=== PATIENT | female | born 1965 | race Caucasian/White ===

== ENCOUNTER 2018-08-06 11:48 | Emergency (ER) | payer BC, OTHER ==
--- OUTSIDE RECORDS SUMMARY | 2018-08-06 11:50 | XMS REPORT | Clinical Summary ---
:1965 Author Organization [facility] Address [address] [place] [address] Care Team Providers Name Role Phone Agustin De La O MD Primary Care Provider Allergies Active Allergy Reactions Severity Noted Date Comments Amoxicillin Swelling 05/31/2016 facial Metoclopramide Hcl Other (See Comments) 05/31/2016 HTN severe Bupropion Hcl Other (See Comments) 05/31/2016 Causes seizures Medications Medication Sig Dispensed Refills Start Date End Date Status methadone (DOLOPHINE) Take 10 mg by 0 Active 10 MG tablet mouth 3 (three) times daily. naproxen Take 220 mg by 0 Active (ALEVE,ANAPROX,MIDOL) mouth 2 (two) 220 MG tablet times daily with breakfast and dinner. nortriptyline Take 50 mg by 0 Active (PAMELOR) 25 MG mouth nightly. capsule zonisamide (ZONEGRAN) Take 100 mg by 0 Active 100 MG capsule mouth 2 (two) times daily. pantoprazole Take 1 tablet (40 7 tablet 0 06/04/2016 Active (PROTONIX) 40 MG mg total) by mouth tablet daily. Active Problems Problem Noted Date Brain metastasis 06/01/2016 History of breast cancer 06/01/2016 History of seizure 06/01/2016 Memory difficulties 06/01/2016 Headache 06/01/2016 Social History Tobacco Use Types Packs/Day Years Used Date Current Some Day Smoker 0.25 8 Smokeless Tobacco: Never Used Tobacco Cessation: Ready to Quit: Yes; Counseling Given: Yes Comments: currenly trying to quit Alcohol Use Drinks/Week oz/Week Comments No Sex Assigned at Date Recorded Not on file Job Start Date Occupation Industry Not on file Not on file Not on file Travel History Travel Start Travel End No recent travel history available. Last Filed Vital Signs Not on file Plan of Treatment Not on file Implants Implanted Type Area Ordering Machine Operator Device Shelf Model / Identifier Expiration Serial / Date Lot Matrix Floseal Hemo W/O Ndl 10 [id number] - [id number] Cement/Josh Left: HERRERA: BIOSCI 09/08/2017 [id number] / Implanted: Qty: 1 on 06/01/2016 by Nico De La O MD ler/Adhesi Head / ve [id number] Plt Un3 2h [id number] - [id number] Fracture/F Left: COLLETTE:CRANIOMA 53- [id number] / Implanted: Qty: 1 on 06/01/2016 by Nico De La O MD ixation Head XILLOFACIAL / Cover St[employer]ker Hole Low Prof 14mm [id number] - [id number] Fracture/F Left: COLLETTE: COLLETTE [id number] / Implanted: Qty: 2 on 06/01/2016 by Nico De La O MD ixation Head LEIBINGER / Scr Un3 [place] Self Drl 1.5x4mm [id number] - [id number] Fracture/F Left: COLLETTE :CRANIOMA [id number] / Implanted: Qty: 9 on 06/01/2016 by Nico De La O MD ixation Head XILLOFACIAL / Durepair 1x1 [id number] - [id number] Tissue Left: MEDTRONIC 05/09/2018 [id number] / Implanted: Qty: 1 on 06/01/2016 by Nico De La O MD Graft/Subs Head SURGICAL / titute NAVIGATION [id number] Results Not on fileafter 08/05/2017 Insurance Payer Benefit Plan / Group Subscriber ID Type Phone Address [facility] xxxxxxxxxxxx HMO/POS [phone] Jacque atkins (Home) [address] [place] [address] Advance Directives For more information, please contact:[address] [phone] Code Status Date Activated Date Inactivated Comments Full Code 06/01/2016 11:27 AM 06/04/2016 7:09 PM This code status was determined by: Patient Full Code 06/01/2016 6:50 AM 06/01/2016 11:27 AM This code status was determined by: Patient
--- NOTE | 2018-08-06 12:14 | ER ---
Nurse's Notes [facility] Name: Maria De Jesus Retana Age: 53 yrs Sex: Female : 1965 Arrival Date: 08/06/2018 Time: 11:50 Bed Waiting Private MD: out of town, doctor Diagnosis: Presentation: 08/06 12:10 Presenting complaint: Patient states: bilateral eye redness, was seen by PCP and sent sv home with eye drops and has since had a reaction to the eye drops to the right eye and was told to see an opthmalogist. Transition of care: patient was not received from another setting of care. Onset of symptoms was July 2018. Care prior to arrival: None. 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 She stated she didn't want to sv stay if there was one not manager of production. Vital Signs: 12:12 BP 154 / 109; Pulse 77; Resp 16; Temp 98.7; Pulse Ox 100% ; sv ED Course: 11:50 Patient arrived in ED. mr 11:50 out of town, doctor is Private Physician. mr 12:11 Triage completed. sv 12:12 Arm band placed on. sv Administered Medications: No medications were administered Outcome: 12:13 Patient left the ED. sv Signatures: Tory Dewitt, RN RN lorena Hwang, Tami mr
== END 2018-08-06 12:13 | disposition left against medical advice (07) ==
LOC: ER 11:48
DX: Z53.21 Procedure and treatment not carried out due to patient leaving prior to being seen by health care provider (principal)
CPT/HCPCS: 99281

== ENCOUNTER 2018-09-05 06:07 | Observation (INO) | payer OTHER ==
--- OUTSIDE RECORDS SUMMARY | 2018-09-05 06:09 | XMS REPORT | Clinical Summary ---
:1965 Author Organization [facility] Address [address] [place] [address] Care Team Providers Name Role Phone Agustin [...] Not on file Implants Implanted Type Area Supervisor Intermediates Device Shelf Model / Identifier Expiration Serial / Date Lot Matrix Floseal Hemo W/O Ndl 10 [id number] - [id number] Cement/Josh Left: HERRERA: BIOSCI 09/08/2017 [id number] / Implanted: Qty: 1 on 06/01/2016 by Nico De La O MD ler/Adhesi Head / ve [id number] Plt Un3 2h [id number] - [id number] Fracture/F Left: COLLETTE:CRANIOMA 53- [id number] / Implanted: Qty: 1 on 06/01/2016 by Nico De La O MD ixation Head XILLOFACIAL / Cover Sonali Hole Low Prof 14mm [id number] - [id number] Fracture/F Left: COLLETTE: COLLETTE [id number] / Implanted: Qty: 2 on 06/01/2016 by Nico De La O MD ixation Head LEIBINGER / Scr Un3 [place] Self Drl 1.5x4mm [id number] - [id number] Fracture/F Left: COLLETTE :CRANIOMA [id number] / Implanted: Qty: 9 on 06/01/2016 by Nico De La O MD ixation Head XILLOFACIAL / Durepair 1x1 [id number] - [id number] Tissue Left: MEDTRONIC 05/09/2018 [id number] / Implanted: Qty: 1 on 06/01/2016 by Nico De La O MD Graft/Subs Head SURGICAL / titute NAVIGATION [id number] Results Not on fileafter 09/04/2017 Insurance Payer Benefit Plan / Group Subscriber ID Type Phone Address [facility] xxxxxxxxxxxx HMO/POS [phone] Jacque atkins (Home) [address] [place] [address] Advance Directives For more information, please contact:[address] [phone] Code Status Date Activated Date Inactivated Comments Full Code 06/01/2016 11:27 AM 06/04/2016 7:09 PM This code status was determined by: Patient Full Code 06/01/2016 6:50 AM 06/01/2016 11:27 AM This code status was determined by: Patient
[2018-09-05 06:59] LABS: Urine Blood 2+ (NEG); Urine Glucose TRACE (NEG); Urine Protein NEGATIVE (NEG)
[2018-09-05] MEDS ORDERED: NA CHLORIDE 0.9% 1,000 ML ONE ×2 (07:26→10:04)
[2018-09-05 07:29] LABS: Barbiturates NEGATIVE (NEGATIVE); Benzodiazepines NEGATIVE (NEGATIVE); Cocaine NEGATIVE (NEGATIVE); METHAMPHETAM NEGATIVE (NEGATIVE); Methadone POSITIVE (NEGATIVE); Opiates NEGATIVE (NEGATIVE); Phencyclidine NEGATIVE (NEGATIVE); THC Cannibis NEGATIVE (NEGATIVE)
[2018-09-05 07:48] LABS: Absolute Lymphocytes (CBC) 0.5 K/uL (0.7-4.9); Absolute Neutrophil 14.4 K/uL (1.8-8.0); Basophils % 0.2 % (0-1.3); Eosinophils % 0.1 % (0-4.4); Hematocrit 40.4 % (36.0-45.0); Lymphocytes % 2.9 % (15.3-44.8); MCH 30.6 pg (27.0-35.0); MCV 91.7 fL (80-100); MPV 7.3 fL (7.6-11.3); Monocytes % 6.4 % (3.3-12.3)
[2018-09-05 08:00] LABS: Protime INR 1.12
[2018-09-05] MEDS ORDERED: DEXAMETHASONE 4 MG/ML VIAL ONE (08:05)
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
[2018-09-05 08:22] LABS: Albumin 3.9 g/dL (3.4-5.0); Bilirubin Direct 0.2 mg/dL (0-0.2); Bilirubin Total 0.4 mg/dL (0.2-1.0); Protein, Total 8.1 g/dL (6.4-8.2); Troponin (Emerg Dept Use Only) 0.07 ng/mL (0.0-0.045)
[2018-09-05 08:27] LABS: Potassium 2.9 mmol/L (3.5-5.1)
[2018-09-05 08:40] LABS: Blood Morphology Comment NOT SEEN (NOT SEEN); Platelet Estimate ADEQ; Urine White Blood Cell Casts DIFF
--- NOTE | 2018-09-05 08:56 | RAD REPORT ---
EXAM DESCRIPTION: CT - Chest For Pe Angio - 09/05/2018 8:39 am CLINICAL HISTORY: Chest pain/ hypoxia COMPARISON: None. TECHNIQUE: Dynamically enhanced axial 3 mm thick images of the chest were obtained during administra tion of <100> mL Isovue 370 IV contrast. Coronal and oblique reconstruction images were generated and reviewed. Exam utilizes a protocol for optimal evaluation of pulmonary arterial tree. Maximum intensity projections 3D imaging was utilized All CT scans are performed using dose optimization technique as appropriate and may include automated exposure control or mA/KV adjustment according to patient size. FINDINGS: A pulmonary embolus is not seen. A thoracic aortic aneurysm is not noted. Bovine aorta A pleural effusion is not seen. A pericardial effusion is not seen. A lung consolidation is not present. Mild right lower lobe atelectasis. A subacute comminuted right clavicular fracture. Gallbladder is mildly distended. Right mastectomy IMPRESSION: Negative for a pulmonary embolism.
[2018-09-05] MEDS ORDERED: POTASSIUM CL SA 10 MEQ TAB PO ONE (09:05)
[2018-09-05] MEDS ORDERED: POTASSIUM 25 MEQ EFFERV TAB ONE (09:05)
--- NOTE | 2018-09-05 09:09 | RAD REPORT ---
EXAM DESCRIPTION: [facility] Single View09/05/2018 7:03 am CLINICAL HISTORY: Shortness of breath COMPARISON: 2011 FINDINGS: The lungs appear clear of acute infiltrate. The heart is normal size. Subacute right clav icular fracture
[2018-09-05] MEDS ORDERED: METOPROLOL XL 50 MG TAB PO ONE (10:55)
--- NOTE | 2018-09-05 11:06 | ER ---
Nurse's Notes [facility] Name: Maria De Jesus Retana Age: 53 yrs Sex: Female : 1965 Arrival Date: 09/05/2018 Time: 06:10 Bed 3 Private MD: Diagnosis: Tachycardia, unspecified;Hypokalemia;Altered mental status, unspecified;Elevated troponin Presentation: 09/05 06:27 Presenting complaint: EMS states: Pt took unknown amount of morphine and methadone at tl2 home. found her unresponsive. Pulse was in 40's, BP 60/40. Administered 2 mg of Narcan, HR increased to 150's and BP increased. Pt is now awake, responds to verbal stimuli but is confused. Transition of care: patient was not received from another setting of care. Onset of symptoms was September 05, 2018 at 05:50. Risk Assessment: Do you want to hurt yourself or someone else? Patient reports no desire to harm self or others. Initial Sepsis Screen: Does the patient meet any 2 criteria? No. Patient's initial sepsis screen is negative. Does the patient have a suspected source of infection? No. Patient's initial sepsis screen is negative. Care prior to arrival: Medication(s) given: narcan 2 mg IV IV initiated. 22 GA, in the left hand, Oxygen administered. via a non-rebreather mask. 06:27 Method Of Arrival: EMS: [facility] 2 06:27 Acuity: HÉCTOR 2 tl2 Triage Assessment: 06:30 General: Appears in no apparent distress. uncomfortable, Behavior is cooperative, tl2 anxious, restless. Pain: Complains of pain in arms. Neuro: Oriented to person, time, Speech is normal. Cardiovascular: Denies chest pain, Rhythm is sinus tachycardia. Respiratory: Airway is patent Respiratory effort is even, unlabored, Respiratory pattern is regular, symmetrical. GI: No signs and/or symptoms were reported involving the gastrointestinal system. : No signs and/or symptoms were reported regarding the genitourinary system. Derm: Skin is pale. Historical: - Allergies: 06:30 Amoxicillin; tl2 06:30 PENICILLINS; tl2 06:30 Reglan; tl2 - Home Meds: 06:30 Methadone Oral [Active]; tl2 - PMHx: 06:30 Brain CA; L sided breast cancer (remission); tl2 - Immunization history:: Adult Immunizations up to date. - Social history:: Smoking status: unknown. - Ebola Screening: : No symptoms or risks identified at this time. Screenin:33 Abuse screen: Denies threats or abuse. Nutritional screening: No deficits noted. tl2 Tuberculosis screening: No symptoms or risk factors identified. Fall Risk IV access (20 points). Gait- Impaired (20 pts.). Mental Status- Overestimates/Forgets Limitations (15 pts.). Assessment: 06:30 General: see triage assessment. tl2 06:49 Reassessment: Gave ID to . tl2 07:15 Reassessment: Patient appears in no apparent distress at this time. Patient and/or ph family updated on plan of care and expected duration. Pain level reassessed. Patient is alert, oriented x 3, equal unlabored respirations, skin warm/dry/pink. Hr noted to be elevated at 143 bpm, sinus tach on bedside monitor, Spo2 also noted to be low at 86-89% RA, pt denies palpitations, chest pain, or SOB at this time, ERP notified of vitals and at bedside, pt placed on NC at 2L and head of bed elevated, Spo2 improved to 96%, 1 liter NS bolus administered per ERP order, see MAR. 08:00 Reassessment: Patient appears in no apparent distress at this time. Patient and/or ph family updated on plan of care and expected duration. Pain level reassessed. Pt asleep w/ snoring respirations, awakens easily to verbal stimuli, reports headache, states, " That's what she takes the Methadone for.". 09:29 Reassessment: Patient appears in no apparent distress at this time. No changes from ph previously documented assessment. Patient and/or family updated on plan of care and expected duration. Pain level reassessed. Pt asleep w/ snoring respirations, awakens easily, at bedside, repeat EKG completed. 10:21 Reassessment: Patient appears in no apparent distress at this time. Patient and/or ph family updated on plan of care and expected duration. Pain level reassessed. Patient is alert, oriented x 3, equal unlabored respirations, skin warm/dry/pink. Pt sitting up in bed, eating breakfast, tolerating well, SO at bedside. 12:09 Reassessment: Patient appears in no apparent distress at this time. Patient and/or ph family updated on plan of care and expected duration. Pain level reassessed. Patient is alert, oriented x 3, equal unlabored respirations, skin warm/dry/pink. Dr Cordero at bedside to speak w/ pt. 13:08 Reassessment: Patient appears in no apparent distress at this time. Patient and/or ph family updated on plan of care and expected duration. Pain level reassessed. Patient is alert, oriented x 3, equal unlabored respirations, skin warm/dry/pink. Attempted to call report, receiving nurse unavailable, was told that she will call back. Vital Signs: 06:30 BP 130 / 83; Pulse 146; Resp 23; Temp 98.8(O); Pulse Ox 93% on R/A; Weight 77.11 kg; tl2 Height 5 ft. 5 in. (165.10 cm); Pain 6/10; 07:15 BP 141 / 96; Pulse 143; Resp 22; Pulse Ox 89% on R/A; ph 07:54 BP 120 / 85; Pulse 131; Resp 10; Pulse Ox 93% 2 lpm ; ph 08:15 BP 119 / 83; Pulse 130; Resp 12; Pulse Ox 94% on 2 lpm NC; ph 09:00 BP 133 / 90; Pulse 130; Resp 10; Pulse Ox 92% on 2 lpm NC; ph 10:00 BP 117 / 92; Pulse 130; Resp 14; Pulse Ox 96% on 2 lpm NC; ph 11:28 BP 121 / 89; Pulse 129; Resp 14; Temp 97.8; Pulse Ox 96% on 2 lpm NC; ph 13:06 BP 114 / 88; Pulse 124; Resp 14; Temp 97.8; Pulse Ox 96% on 4 lpm NC; ph 06:30 Body Mass Index 28.29 (77.11 kg, 165.10 cm) tl2 07:15 pt placed on NC at 2L and repositioned in bed, improved to 96% ph 07:54 pt asleep ph Wendy Coma Score: 06:30 Eye Response: spontaneous(4). Verbal Response: confused(4). Motor Response: obeys tl2 commands(6). Total: 14. 07:15 Eye Response: spontaneous(4). Verbal Response: oriented(5). Motor Response: obeys ph commands(6). Total: 15. 09:00 Eye Response: to voice(3). Verbal Response: oriented(5). Motor Response: obeys ph commands(6). Total: 14. ED Course: 06:10 Patient arrived in ED. em1 06:16 Emigdio Leon PA is PHCP. [facility] 06:16 Darryn Ruano MD is Attending Physician. jm 06:29 Triage completed. tl2 06:30 Arm band placed on right wrist. tl2 06:30 Maintain EMS IV. Dressing intact. Good blood return noted. Site clean \\T\\ dry. Gauge \\T\\ tl 2 site: 22 g left hand. 06:33 Patient has correct armband on for positive identification. Bed in low position. Call tl2 light in reach. Side rails up X2. 06:33 correctional counselor/case manager on. Pulse ox on. NIBP on. tl2 06:33 Rhodes cath inserted, using sterile technique, 16 Fr., by ED staff, balloon inflated, to tl2 gravity drainage, urine specimen collected. returned clear yellow urine. Patient tolerated well. 06:53 Radiology exam delayed due to ER staff and Lab are currently working with patient. kw1 07:00 X-ray completed. Portable x-ray completed in exam room. Patient tolerated procedure jb2 well. 07:01 XRAY Chest (1 view) In Process Unspecified. EDMS 07:[address] via stretcher. kw1 07:08 CT Head C Spine In Process Unspecified. EDMS 07:12 CT completed. Patient tolerated procedure well. Patient moved back from CT. kw1 07:30 Initial lab(s) drawn, by ks, sent to lab. Inserted saline lock: 22 gauge in right ph forearm, using aseptic technique. Blood collected. 07:42 Radiology exam delayed due to lab results not completed at this time. (BUN/Creatinine). kw1 07:48 Josy Hartman, RN is Primary Nurse. 08:36 CT completed. Patient tolerated procedure well. Patient moved to CT via stretcher. Patient moved back from CT. 08:39 CT Chest For PE Angio In Process Unspecified. EDMS 11:00 Juliet Cordero MD is Hospitalizing Provider. [facility] 14:00 No provider procedures requiring assistance completed. Patient admitted, IV remains in ph place. Administered Medications: 07:35 Drug: NS 0.9% 1000 ml Route: IV; Rate: 1 bolus; Site: right forearm; ph 10:26 Follow up: Response: No adverse reaction; IV Status: Completed infusion ph 08:51 Not Given (Physician Discretion): Decadron - Dexamethasone 4 mg IVP once ph 09:10 Drug: Potassium Chloride 40 mEq Route: PO; ph 10:26 Follow up: Response: No adverse reaction ph 10:05 Drug: NS 0.9% 1000 ml Route: IV; Rate: 1 bolus; Site: right forearm; ph 11:23 Follow up: Response: No adverse reaction; IV Status: Completed infusion ph 11:23 Drug: Metoprolol 50 mg Route: PO; ph 12:11 Follow up: Response: No adverse reaction; Cardiac rhythm is unchanged ph Point of Care Testing: Blood Glucose: 11:28 Blood Glucose: 121 mg/dL; ph Ranges: Output: 06:53 Urine: 800ml (Rhodes); Total: 800ml. tl2 Outcome: 11:01 Decision to Hospitalize by Provider. perry 14:03 Patient left the ED. samantha 14:03 Admitted to Med/surg accompanied by tech, family with patient, via stretcher, with ph oxygen, with chart. 14:03 Condition: stable 14:03 Instructed on the need for admit. Signatures: Dispatcher [employer] Karin Villalpando, RN RN dm5 Emigdio Leon PA PA jmm Buechter, Jesse jb2 Jones, Susan sj Martinez, Eric em1 Josy Hartman RN RN Hoda Everett RN RN tl2 [place]osua Govea 1 Corrections: (The following items were deleted from the chart) 06:50 06:30 BP 130 / 83; Pulse 146bpm; Resp 23bpm; Pulse Ox 93% RA; 77.11 kg; Height 5 ft. 5 tl2 in.; BMI: 28.2; Pain 6/10; tl2
--- NOTE | 2018-09-05 11:06 | EDPHYS ---
Physician Documentation [facility] Name: Maria De Jesus Retana Age: 53 yrs Sex: Female : 1965 Arrival Date: 09/05/2018 Time: 06:10 Bed 3 Private MD: ED Physician Darryn Ruano HPI: 09/05 07:35 This 53 yrs old Female presents to ER via EMS with complaints of AMS. [facility] 07:36 The patient presents with decreased mental status, decreased responsiveness. Onset: The jmm symptoms/episode began/occurred acutely, this morning. Possible causes: drug use, seizure, the patient has a known seizure history. Associated signs and symptoms: Pertinent positives: confusion. This is a 53 year old female with a history of metastatic breast cancer that presents to the ED with ams. According to paramedics that patient was in respiratory distress with low 02 and was then administered 2 mg of narcan. The patient respiratory status then improved and the patient was then responsive to commands. . Patient states she had no intention to harm herself. . Historical: - Allergies: 06:30 Amoxicillin; tl2 06:30 PENICILLINS; tl2 06:30 Reglan; tl2 - Home Meds: 06:30 Methadone Oral [Active]; tl2 - PMHx: 06:30 Brain CA; L sided breast cancer (remission); tl2 - Immunization history:: Adult Immunizations up to date. - Social history:: Smoking status: unknown. - Ebola Screening: : No symptoms or risks identified at this time. ROS: 07:50 Constitutional: Negative for fever, chills, and weight loss, Eyes: Negative for injury, jmm pain, redness, and discharge, Cardiovascular: Negative for chest pain, palpitations, and edema, Respiratory: Negative for shortness of breath, cough, wheezing, and pleuritic chest pain, Abdomen/GI: Negative for abdominal pain, nausea, vomiting, diarrhea, and constipation, Back: Negative for injury and pain, MS/Extremity: Negative for injury and deformity, Neuro: Negative for headache, weakness, numbness, tingling, and seizure. 07:50 All other systems are negative. Exam: 07:50 Head/Face: atraumatic. jmm 07:50 Constitutional: The patient appears in no acute distress, alert, awake. 07:50 ENT: superficial laceration noted to the tongue. 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 07:50 Cardiovascular: Rate: tachycardic, Rhythm: regular. 07:50 Respiratory: the patient does not display signs of respiratory distress, Respirations: normal, Breath sounds: are clear throughout. 07:50 Abdomen/GI: Inspection: abdomen appears normal. 07:50 Back: ROM is normal. 07:50 Musculoskeletal/extremity: ROM: intact in all extremities. 07:50 Skin: Appearance: Color: normal in color. 07:50 Neuro: Orientation: is normal, Mentation: is normal, Memory: is normal. 07:50 Psych: Behavior/mood is pleasant, cooperative. Vital Signs: 06:30 BP 130 / 83; Pulse 146; Resp 23; Temp 98.8(O); Pulse Ox 93% on R/A; Weight 77.11 kg; tl2 Height 5 ft. 5 in. (165.10 cm); Pain 6/10; 07:15 BP 141 / 96; Pulse 143; Resp 22; Pulse Ox 89% on R/A; ph 07:54 BP 120 / 85; Pulse 131; Resp 10; Pulse Ox 93% 2 lpm ; ph 08:15 BP 119 / 83; Pulse 130; Resp 12; Pulse Ox 94% on 2 lpm NC; ph 09:00 BP 133 / 90; Pulse 130; Resp 10; Pulse Ox 92% on 2 lpm NC; ph 10:00 BP 117 / 92; Pulse 130; Resp 14; Pulse Ox 96% on 2 lpm NC; ph 11:28 BP 121 / 89; Pulse 129; Resp 14; Temp 97.8; Pulse Ox 96% on 2 lpm NC; ph 13:06 BP 114 / 88; Pulse 124; Resp 14; Temp 97.8; Pulse Ox 96% on 4 lpm NC; ph 06:30 Body Mass Index 28.29 (77.11 kg, 165.10 cm) tl2 07:15 pt placed on NC at 2L and repositioned in bed, improved to 96% ph 07:54 pt asleep ph Wendy Coma Score: 06:30 Eye Response: spontaneous(4). Verbal Response: confused(4). Motor Response: obeys tl2 commands(6). Total: 14. 07:15 Eye Response: spontaneous(4). Verbal Response: oriented(5). Motor Response: obeys ph commands(6). Total: 15. 09:00 Eye Response: to voice(3). Verbal Response: oriented(5). Motor Response: obeys ph commands(6). Total: 14. MDM: 06:31 Patient medically screened. [facility] 10:57 Data reviewed: vital signs, nurses notes. Counseling: I had a detailed discussion with [facility] the patient and/or guardian regarding: the historical points, exam findings, and any diagnostic results supporting the discharge/admit diagnosis. ED course: I discussed the patient with Dr. Cordero whom accepted admission. . 11:23 Data reviewed: lab test result(s), EKG, radiologic studies, CT scan. Counseling: I had [facility] a detailed discussion with the patient and/or guardian regarding: lab results, radiology results, the need for further work-up and treatment in the hospital. 11:23 ED course: Patient is currently alert and non toxic in appearance in the ED. Patient perry continues to have persistent tachycardia. CT negative for acute findings. Dr. Wilde has evaluated the patient at bedside. Patient appears to have had a combination of opioid induced respiratory depression along with possible seizure due to sub therapeutic Tegretol levels. . 09/05 06:17 Order name: Basic Metabolic Panel; Complete Time: 08:42 [facility] 09/05 06:17 Order name: CBC with Diff; Complete Time: 08:49 [facility] 09/05 06:17 Order name: LFT's; Complete Time: 08:42 [facility] 09/05 06:17 Order name: Magnesium; Complete Time: 08:42 [facility] 09/05 06:17 Order name: NT PRO-BNP; Complete Time: 08:42 [facility] 09/05 06:17 Order name: PT-INR; Complete Time: 08:11 [facility] 09/05 06:17 Order name: Troponin (emerg Dept Use Only); Complete Time: 08:42 [facility] 09/05 06:17 Order name: XRAY Chest (1 view); Complete Time: 09:14 [facility] 09/05 06:17 Order name: ETOH Level; Complete Time: 08:11 [facility] 09/05 06:17 Order name: UDS; Complete Time: 07:59 [facility] 09/05 06:52 Order name: Urine Dipstick--Ancillary (enter results); Complete Time: 07:02 09/05 07:53 Order name: CBC Smear Scan [facility] 09/05 07:58 Order name: Carbamazepine (tegretol); Complete Time: 08:24 [facility] 09/05 08:42 Order name: Manual Differential; Complete Time: 08:49 [facility] 09/05 06:17 Order name: EKG; Complete Time: 06:18 [facility] 09/05 06:17 Order name: Cardiac monitoring; Complete Time: 06:35 [facility] 09/05 06:17 Order name: EKG - Nurse/Tech; Complete Time: 06:36 [facility] 09/05 06:17 Order name: IV Saline Lock; Complete Time: 06:36 [facility] 09/05 06:17 Order name: Labs collected and sent; Complete Time: 06:36 [facility] 09/05 06:17 Order name: O2 Per Protocol; Complete Time: 06:36 [facility] 09/05 06:17 Order name: O2 Sat Monitoring; Complete Time: 06:36 [facility] 09/05 06:32 Order name: CT Head C Spine; Complete Time: 08:11 [facility] 09/05 06:42 Order name: Rhodes; Complete Time: 06:43 tl2 09/05 07:29 Order name: CT Chest For PE Angio; Complete Time: 09:07 [facility] 09/05 09:22 Order name: Diet Regular; Complete Time: 09:23 ph 09/05 10:38 Order name: Fingerstick Glucose; Complete Time: 11:28 jm Administered Medications: 07:35 Drug: NS 0.9% 1000 ml Route: IV; Rate: 1 bolus; Site: right forearm; ph 10:26 Follow up: Response: No adverse reaction; IV Status: Completed infusion ph 08:51 Not Given (Physician Discretion): Decadron - Dexamethasone 4 mg IVP once ph 09:10 Drug: Potassium Chloride 40 mEq Route: PO; ph 10:26 Follow up: Response: No adverse reaction ph 10:05 Drug: NS 0.9% 1000 ml Route: IV; Rate: 1 bolus; Site: right forearm; ph 11:23 Follow up: Response: No adverse reaction; IV Status: Completed infusion ph 11:23 Drug: Metoprolol 50 mg Route: PO; ph 12:11 Follow up: Response: No adverse reaction; Cardiac rhythm is unchanged ph Point of Care Testing: Blood Glucose: 11:28 Blood Glucose: 121 mg/dL; ph Ranges: Critical Glucose Levels:Adult <50 mg/dl or >400 mg/dl <40 mg/dl or >180 mg/dl Disposition: 09/05/18 11:01 Hospitalization ordered by Juliet Cordero for Inpatient Admission. Preliminary diagnosis are Tachycardia, unspecified, Hypokalemia, Altered mental status, unspecified, Elevated troponin. - Bed requested for Telemetry/MedSurg (Inpatient). - Status is Inpatient Admission. dm5 - Condition is Stable. - Problem is new. - Symptoms have improved. UTI on Admission? No Addendum: 09/08/2018 04:04 Co-signature as Attending Physician, Darryn uRano MD. g s Signatures: Dispatcher [employer] EDMS Barbie Will Deana, RN RN dm5 Emigdio Leon PA PA jmm Hall, Patricia, RN RN Hoda Everett, RN ASHLEY 2 Darryn Ruano MD MD Corrections: (The following items were deleted from the chart) 09/05 11:45 11:01 Hospitalization Ordered by Juliet Cordero MD for Inpatient Admission. Preliminary bd diagnosis is Tachycardia, unspecified; Hypokalemia; Altered mental status, unspecified; Elevated troponin. Bed requested for Telemetry/MedSurg (Inpatient). Status is Inpatient Admission. Condition is Stable. Problem is new. Symptoms have improved. UTI on Admission? No. jmm 14:03 11:45 09/05/2018 11:01 Hospitalization Ordered by Juliet Cordero MD for Inpatient dm5 Admission. Preliminary diagnosis is Tachycardia, unspecified; Hypokalemia; Altered mental status, unspecified; Elevated troponin. Bed requested for Telemetry/MedSurg (Inpatient). Status is Inpatient Admission. Condition is Stable. Problem is new. Symptoms have improved. UTI on Admission? No. bd
[2018-09-05] MEDS ORDERED: NALOXONE 0.4 MG/ML VIAL IV PRN (11:21)
[2018-09-05] MEDS ORDERED: ONDANSETRON 4 MG/2 ML VIAL IV PRN (11:21)
--- NOTE | 2018-09-05 12:10 | EKG ---
Test Date: 2018-09-05 Test Time: 06:20:08 Latex Ribbon Machine Operator: FRANCK MEASUREMENT RESULTS: Intervals: Rate: 150 MS: QRSD: 100 QT: 332 QTc: 524 [place]: P: MS: QRS: 95 T: 4 INTERPRETIVE STATEMENTS: Supraventricular tachycardia Rightward axis Cannot rule out Inferior infarct, age undetermined ST & T wave abnormality, consider anterior ischemia Abnormal ECG No previous ECG available for comparison Electronically Signed On 09-05-18 12:09:05 SUPERVISOR STEEL DIVISION by Erasto Crowe
[2018-09-05 16:18] VITALS: BMI 28.3
[2018-09-05] MEDS: NS KCL 20MEQ 20 MEQ/1,000 ML BAG IV SCH ×2 (16:59→22:00)
[2018-09-05] MEDS ORDERED: ENOXAPARIN 30 MG/0.3 ML SQ SCH (17:00)
[2018-09-05] MEDS: METOPROLOL TAR 25 MG TAB PO SCH (17:00)
[2018-09-05 17:15] LABS: Potassium 4.2 mmol/L (3.5-5.1)
[2018-09-05] MEDS: ACETAMINOPHEN 500 MG TAB PO PRN (19:49)
[2018-09-05] MEDS: CARBAMAZEPINE 200 MG TAB PO SCH (21:03)
[2018-09-06] MEDS: ACETAMINOPHEN 500 MG TAB PO PRN ×3 (00:30→13:29)
[2018-09-06] MEDS: NS KCL 20MEQ 20 MEQ/1,000 ML BAG IV SCH ×4 (00:47→13:28)
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
[2018-09-06 05:00] LABS: Absolute Lymphocytes (CBC) 1.5 K/uL (0.7-4.9); Absolute Monocytes 0.7 K/uL (0.1-1.3); Absolute Neutrophil 7.4 K/uL (1.8-8.0); Basophils % 0.2 % (0-1.3); Eosinophils % 1.2 % (0-4.4); Hematocrit 35.7 % (36.0-45.0); Lymphocytes % 15.2 % (15.3-44.8); MCH 30.8 pg (27.0-35.0); MCV 92.2 fL (80-100); MPV 7.9 fL (7.6-11.3); Monocytes % 7.1 % (3.3-12.3); RBC Red Blood Cell Count 3.87 M/uL (3.86-4.86)
[2018-09-06 05:19] LABS: Albumin 3.4 g/dL (3.4-5.0); Bilirubin Total 0.4 mg/dL (0.2-1.0); Magnesium 2.1 mg/dL (1.8-2.4); Phosphorus 3.4 mg/dL (2.5-4.9); Potassium 4.3 mmol/L (3.5-5.1); Protein, Total 6.8 g/dL (6.4-8.2)
[2018-09-06] MEDS: METOPROLOL TAR 25 MG TAB PO SCH (06:49)
--- NOTE | 2018-09-06 07:12 | EKG ---
Test Date: 2018-09-05 Test Time: 06:34:13 Waste/Materials Exchange Specialist: FRANCK MEASUREMENT RESULTS: Intervals: Rate: 144 IL: QRSD: 100 QT: 360 QTc: 557 [place]: P: IL: QRS: 91 T: 9 INTERPRETIVE STATEMENTS: Supraventricular tachycardia, cannot rule out atrial flutter Rightward axis Cannot rule out Inferior infarct, age undetermined Abnormal ECG Compared to ECG 09/05/2018 06:20:08 ST (T wave) deviation no longer present Possible ischemia no longer present Myocardial infarct finding still present Electronically Signed On 09-06-18 07:12:03 ROLL HANDLER by Chapin Perez
--- NOTE | 2018-09-06 07:14 | EKG ---
Test Date: 2018-09-05 Test Time: 09:25:44 Effervescent Salts Compounder: ROBB MEASUREMENT RESULTS: Intervals: Rate: 130 TX: QRSD: 104 QT: 386 QTc: 568 [place]: P: TX: QRS: 84 T: -22 INTERPRETIVE STATEMENTS: Sinus tachycardia, cannot rule out atrial flutter Cannot rule out Inferior infarct, age undetermined Abnormal ECG Compared to ECG 09/05/2018 06:34:13 Right-axis deviation no longer present Myocardial infarct finding still present Electronically Signed On 09-06-18 07:13:27 ROLL CHANGER by Chapin Perez
[2018-09-06] MEDS: CARBAMAZEPINE 200 MG TAB PO SCH (08:49)
[2018-09-06] MEDS ORDERED: SERTRALINE HCL 100 MG TAB PO SCH (09:00)
--- NOTE | 2018-09-06 11:45 | EKG ---
Test Date: 2018-09-06 Test Time: 10:13:55 Clay Shop Supervisor: ROBB MEASUREMENT RESULTS: Intervals: Rate: 65 MO: 168 QRSD: 96 QT: 418 QTc: 434 [place]: P: 18 MO: 168 QRS: 88 T: 38 INTERPRETIVE STATEMENTS: Sinus rhythm with premature atrial complexes Otherwise normal ECG Compared to ECG 09/05/2018 09:25:44 Atrial premature complex(es) now present Sinus tachycardia no longer present Atrial flutter no longer present Myocardial infarct finding no longer present Electronically Signed On 09-06-18 11:44:11 INPATIENT NURSING AIDE by Chapin Perez
--- NOTE | 2018-09-06 11:46 | ECHO ---
HEIGHT: 5 ft 5 in WEIGHT: 170 lb 0 oz DATE OF STUDY: 09/06/[address]: Chapin Perez MD 2-DIMENSIONAL: YES M.MODE: YES DOPPLER: YES COLOR FLOW: YES TDS: APICALS PORTABLE: DEFINITY: BUBBLE STUDY: DIAGNOSIS: TACHYCARDIA CARDIAC HISTORY: CATHERIZATION: NO SURGERY: NO PROSTHETIC VALVE: NO PACEMAKER: NO MEASUREMENTS (cm) DIASTOLIC (NORMALS) SYSTOLIC (NORMALS) IVSd 1.1 (0.6-1.2) LA Diam 3.4 (1.9-4.0) LVEF 67% LVIDd 3.5 (3.5-5.7) LVIDs 2.2 (2.0-3.5) %FS 36% LVPWd 1.2 (0.6-1.2) Ao Diam 2.8 (2.0-3.7) 2 DIMENSIONAL ASSESSMENT: RIGHT ATRIUM: NORMAL LEFT ATRIUM: NORMAL RIGHT VENTRICLE: NORMAL LEFT VENTRICLE: NORMAL TRICUSPID VALVE: NORMAL MITRAL VALVE: NORMAL PULMONIC VALVE: NORMAL AORTIC VALVE: NORMAL PERICARDIAL EFFUSION: NONE AORTIC ROOT: NORMAL LEFT VENTRICULAR WALL MOTION: NORMAL DOPPLER/COLOR FLOW: MILD TRICUSPID REGURGITATION. MILD PULMONARY HYPERTENSION. ESTIMATED RIGHT VENTRICULAR SYSTOLIC PRESSURE 40 mmHg. COMMENTS: NORMAL 2-DIMENSIONAL ECHOCARDIOGRAM. MILD TRICUSPID REGURGITATION. MILD PULMONARY HYPERTENSION. TECHNOLOGIST: SEBASTIEN MACIAS
[2018-09-06 13:07] VITALS: O2SAT 94
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
[2018-09-06 16:59] VITALS: BP 92/63; TEMP 97.9
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
== END 2018-09-06 16:29 | disposition home or self-care (01) ==
LOC: ER 06:07 → INTOOBSV 11:07 → ERHOLD 11:07 → 4TH 13:42
PROVIDERS: ADMIT Family Medicine; ATTEND Family Medicine
DX: G93.41 Metabolic encephalopathy (principal); G40.909 Epilepsy, unspecified, not intractable, without status epilepticus; E87.6 Hypokalemia; N17.9 Acute kidney failure, unspecified; S42.001A Fracture of unspecified part of right clavicle, initial encounter for closed fracture; S12.000A Unspecified displaced fracture of first cervical vertebra, initial encounter for closed fracture; Z85.3 Personal history of malignant neoplasm of breast; Z85.841 Personal history of malignant neoplasm of brain; G89.4 Chronic pain syndrome; I47.1 Supraventricular tachycardia; R65.10 Systemic inflammatory response syndrome (SIRS) of non-infectious origin without acute organ dysfunction; Z88.0 Allergy status to penicillin; F10.129 Alcohol abuse with intoxication, unspecified; R00.0 Tachycardia, unspecified
CPT/HCPCS: 36415 ×2; 51702; 70450; 71045 ×2; 71275; 72125; 80048 ×2; 80053; 80076; 80156; 80307 ×8; 80320; 81003; 82962; 83605; 83735 ×2; 83880; 84100; 84145; 84484; 85025 ×2; 85610; 93005 ×4; 93306; 94760 ×4; 96360; 96361; 99285; G0378 ×2; J1650; J7030 ×2; Q9967

== ENCOUNTER 2020-02-22 19:06 | Emergency (ER) | payer SELFPAY ==
--- OUTSIDE RECORDS SUMMARY | 2020-02-22 19:09 | XMS REPORT ---
:1965 Author Organization [facility] t Address [address] [place] [address] Dr. Nassar [address] [place] [id number] Care Team Providers Name Role Phone Unavailable Unavailable Unavailable Problems This patient has no known problems. Allergies, Adverse Reactions, Alerts This patient has no known allergies or adverse reactions. Medications This patient has no known medications. Procedures This patient has no known procedures. Results This patient has no known results.
--- OUTSIDE RECORDS SUMMARY | 2020-02-22 19:09 | XMS REPORT | Clinical Summary ---
:1965 Author Organization [facility] Address [address] [place] [id number] Care Team Providers Name Role Phone Cory De La O MD Primary Care Provider Unavailable Allergies Active Allergy Reactions Severity Noted Date Comments Amoxicillin Swelling 05/31/2016 facial Metoclopramide Hcl Other (See Comments) 05/31/2016 H TN severe Bupropion Hcl Other (See Comments) 05/31/2016 Causes seizures Medications Medication Sig Dispensed Refills Start Date End Date Status methadone (DOLOPHINE) Take 10 mg by 0 Active 10 MG tablet mouth 3 (three) times daily. naproxen Take 220 mg by 0 Activ e (ALEVE,ANAPROX,MIDOL) mouth 2 (two) 220 MG tablet times daily with breakfast and dinner. nortriptyline Take 50 mg by 0 Ac tive (PAMELOR) 25 MG mouth nightly. capsule zonisamide [...] Used Tobacco Cessation: Ready to Quit: Yes; C ounseling Given: Yes Comments: currenly trying to quit Alcohol Use Drinks/Week oz/Week Comments No Sex Assigned at Date Recorded Not on file Job Start Date Occupation Industry Not on file Not on file Not on file Travel History Travel Start Travel End No recent travel history available. Last Filed Vital Signs Not on file Plan of Treatment Not on file Implants Implanted Type Area Maintenance Worker Municipal Device Shelf Model / Identifier Expiration Serial / Date Lot Matrix Floseal Hemo W/O Ndl 10 [id number] - [id number] Cement/Josh Left: HERRERA:BIOSCI 09/08/2017 [id number] / Implanted: Qty: 1 on 06/01/2016 by Nico De La O MD ler/Adhesi Head / ve [id number] Plt Un3 2h [id number] - [id number] Fracture/F Left: COLLETTE:CRANIOMA [id number] / Implanted: Qty: 1 on 06/01/2016 by Nico De La O MD ixation Head XILLOFACIAL / Cover Felch Hole Low Prof 14mm [id number] - [id number] Fracture/F Left: COLLETTE:COLLETTE [id number] / Implanted: Qty: 2 on 06/01/2016 by Nico De La O MD ixation Head LEIBINGER / Scr Un3 [place] Self Drl 1.5x4mm [id number] - [id number] Fracture/F Left: COLLETTE:CRANIOMA [id number] / Implanted: Qty: 9 on 06/01/2016 by Nico De La O MD ixation Head XILLOFACIAL / Durepair 1x1 [id number] - [id number] Tissue Left: MEDTRONIC 05/09/2018 [id number] / Implanted: Qty: 1 on 06/01/2016 by Nico De La O MD Graft/Subs Head SURGICAL / titute NAVIGATION [id number] Results Not on fileafter 02/21/2019 Insurance Payer Benefit Plan / Group Subscriber ID Type Phone [facility]/POS [phone] CHOICE EXCHANGE Advance Directives For more information, please contact:[address] [phone] Code Status Date Activated Date Inactivated Comments Full Code 06/01/2016 11:27 AM 06/04/2016 7:09 PM This code status was determined by: Patient Full Code 06/01/2016 6:50 AM 06/01/2016 11:27 AM This code status was determined by: Patient
--- NOTE | 2020-02-22 20:33 | ER ---
Nurse's Notes [facility] Name: Maria De Jesus Retana Age: 54 yrs Sex: Female : 1965 Arrival Date: 02/22/2020 Time: 19:09 Bed 7 Private MD: Diagnosis: Nondisplaced fracture of fifth metatarsal bone, left foot;Displaced avulsion fracture (chip fracture) of left talus Presentation: 02/21 19:19 Chief complaint: Patient states: Was walking and twisted L foot 2 days ago. Now, it's ca1 hurting and swollen. Coronavirus screen: Proceed with normal triage. Patient denies a cough. Patient denies shortness of breath or difficulty breathing. Patient denies measured and/or subjective temperature greater than 100.4F prior to today's visit. Patient denies travel on a cruise ship or to a country the [facility] currently lists as an affected area. Patient denies contact with known and/or suspected case of COVID-19. Ebola Screen: Patient negative for fever greater than or equal to 101.5 degrees Fahrenheit, and additional compatible Ebola Virus Disease symptoms Patient denies exposure to infectious person. Patient denies travel to an Ebola-affected area in the 21 days before illness onset. No symptoms or risks identified at this time. Initial Sepsis Screen: Does the patient meet any 2 criteria? No. Patient's initial sepsis screen is negative. Does the patient have a suspected source of infection? No. Patient's initial sepsis screen is negative. Risk Assessment: Do you want to hurt yourself or someone else? Patient reports no desire to harm self or others. Onset of symptoms was February 22, 2020. 19:19 Method Of Arrival: Wheelchair ca1 19:19 Acuity: HÉCTOR 4 ca1 OPTICAL EFFECTS LINE UP PERSON: 19:22 LMP N/A - Post-menopause ca1 Historical: - Allergies: 19:22 Amoxicillin; ca1 19:22 PENICILLINS; ca1 19:22 Reglan; ca1 - PMHx: 19:22 Brain CA; L sided breast cancer (remission); ca1 - PSHx: 19:22 None; ca1 - Immunization history:: Adult Immunizations up to date. - Social history:: Smoking status: Patient denies any tobacco usage or history of. - Family history:: not pertinent. Screenin:47 Abuse screen: Denies threats or abuse. Denies injuries from another. Nutritional rr5 screening: No deficits noted. Tuberculosis screening: No symptoms or risk factors identified. Fall Risk None identified. Total Abraham Fall Scale indicates No Risk (0-24 pts). Assessment: 19:30 General: Appears in no apparent distress. uncomfortable, Behavior is calm, cooperative, rr5 appropriate for age. 19:30 Pain: Complains of pain in left foot Pain does not radiate. Pain currently is 6 out of rr5 10 on a pain scale. Quality of pain is described as aching, Pain began 2-3 days ago. Is intermittent. Neuro: Level of Consciousness is awake, alert, obeys commands, Oriented to person, place, time, situation, Appropriate for age. Cardiovascular: Capillary refill < 3 seconds Patient's skin is warm and dry. Respiratory: Airway is patent Respiratory effort is even, unlabored, Respiratory pattern is regular, symmetrical. GI: No signs and/or symptoms were reported involving the gastrointestinal system. : No signs and/or symptoms were reported regarding the genitourinary system. EENT: No signs and/or symptoms were reported regarding the EENT system. Derm: Skin is intact, is healthy with good turgor, Skin temperature is warm. Musculoskeletal: Capillary refill < 3 seconds, Reports pain in left foot. 20:20 Reassessment: Patient appears in no apparent distress at this time. No changes from rr5 previously documented assessment. Patient and/or family updated on plan of care and expected duration. Pain level reassessed. Patient is alert, oriented x 3, equal unlabored respirations, skin warm/dry/pink. 21:00 Reassessment: Patient appears in no apparent distress at this time. Patient is alert, rr5 oriented x 3, equal unlabored respirations, skin warm/dry/pink. ED provider explained the findings together with patients powersaw supervisor, discharge instruction given and explained without complaints made. Vital Signs: 19:19 BP 133 / 98; Pulse 112; Resp 16 S; Temp 97.7(TE); Pulse Ox 98% on R/A; Weight 77.11 kg ca1 (R); Height 5 ft. 10 in. (177.80 cm) (R); Pain 6/10; 21:00 BP 125 / 70; Pulse 99; Resp 16; Pulse Ox 99% on R/A; rr5 19:19 Body Mass Index 24.39 (77.11 kg, 177.80 cm) ca1 ED Course: 19:09 Patient arrived in ED. ds1 19:21 Triage completed. ca1 19:22 Arm band placed on right wrist. [facility] 19:26 Edmar Reyes MD is Attending Physician. [facility] 19:27 Tucker Lam, RN is Primary Nurse. rr5 19:48 Patient has correct armband on for positive identification. Bed in low position. Call rr5 light in reach. Pulse ox on. NIBP on. Ice pack to injury. 20:06 Foot Left 3 View XRAY In Process Unspecified. EDMS 20:06 Ankle Left 3 View XRAY In Process Unspecified. EDMS 20:30 Joens Iniguez MD is Referral Physician. [facility] 20:50 3D boot applied to left foot. rr5 21:00 No provider procedures requiring assistance completed. Patient did not have IV access rr5 during this emergency room visit. Administered Medications: 20:30 Drug: [place] 10 mg-325 mg 1 tabs {Note: rass 0.} Route: PO; rr5 21:00 Follow up: Response: No adverse reaction; RASS: Alert and Calm (0) rr5 Outcome: 20:32 Discharge ordered by . [facility] 21:00 Discharged to home via wheelchair, with family. rr5 21:00 Condition: stable 21:00 Discharge instructions given to patient, family, Instructed on discharge instructions, follow up and referral plans. medication usage, Demonstrated understanding of instructions, follow-up care, medications, Prescriptions given X 2. 21:01 Patient left the ED. rr5 Signatures: Dispatcher [employer] EDTN Edmar Reyes MD MD cha Sanford, Demi ds1 Tucker Lam, RN RN rr5 Jacquelin Cerna RN RN ca1
--- NOTE | 2020-02-22 20:33 | EDPHYS ---
Physician Documentation [facility] Name: Maria De Jesus Retana Age: 54 yrs Sex: Female : 1965 Arrival Date: 02/22/2020 Time: 19:09 Bed 7 Private MD: Edmar Foreman HPI: 02/21 19:41 This 54 yrs old Female presents to ER via Wheelchair with complaints of L carito Foot Pain. 19:41 The patient presents with decreased range of motion, pain, swelling, tenderness. The carito complaints affect the left ankle, left lateral ankle and anterior aspect of left ankle. Onset: The symptoms/episode began/occurred 2 day(s) ago. Context: The mechanism of injury involved inversion of the affected ankle. The patient can partially bear weight on the affected extremity. Associated signs and symptoms: The patient has no apparent associated signs or symptoms. The patient presents with decreased range of motion, pain, swelling, tenderness. The complaints affect the left foot, lateral side of left foot and dorsum of left foot. Context: resulted from a mis-step by the patient, the patient tripping, Mechanism of Injury: Inversion. Modifying factors: The symptoms are alleviated by elevation of extremity, ice packs, the symptoms are aggravated by weight bearing, movement, wearing shoes. Associated signs and symptoms: The patient has no apparent associated signs or symptoms. Severity of symptoms: At their worst the symptoms were moderate, in the emergency department the symptoms are unchanged, despite home interventions. The patient has not experienced similar symptoms in the past. DRIVE THRU ORDER TAKER: 19:22 LMP N/A - Post-menopause ca1 Historical: - Allergies: 19:22 Amoxicillin; ca1 19:22 PENICILLINS; ca1 19:22 Reglan; ca1 - PMHx: 19:22 Brain CA; L sided breast cancer (remission); ca1 - PSHx: 19:22 None; ca1 - Immunization history:: Adult Immunizations up to date. - Social history:: Smoking status: Patient denies any tobacco usage or history of. - Family history:: not pertinent. ROS: 19:41 Constitutional: Negative for fever, chills, and weight loss, Eyes: Negative for injury, carito pain, redness, and discharge, ENT: Negative for injury, pain, and discharge, Neck: Negative for injury, pain, and swelling, Cardiovascular: Negative for chest pain, palpitations, and edema, Respiratory: Negative for shortness of breath, cough, wheezing, and pleuritic chest pain, Abdomen/GI: Negative for abdominal pain, nausea, vomiting, diarrhea, and constipation, Back: Negative for injury and pain, : Negative for injury, bleeding, discharge, and swelling, Skin: Negative for injury, rash, and discoloration, Neuro: Negative for headache, weakness, numbness, tingling, and seizure, Psych: Negative for depression, anxiety, suicide ideation, homicidal ideation, and hallucinations, Allergy/Immunology: Negative for hives, rash, and allergies, Endocrine: Negative for neck swelling, polydipsia, polyuria, polyphagia, and marked weight changes, Hematologic/Lymphatic: Negative for swollen nodes, abnormal bleeding, and unusual bruising. 19:41 MS/extremity: Positive for decreased range of motion, pain, swelling, tenderness. Exam: 19:41 Constitutional: This is a well developed, well nourished patient who is awake, alert, carito and in no acute distress. Head/Face: Normocephalic, atraumatic. Eyes: Pupils equal round and reactive to light, extra-ocular motions intact. Lids and lashes normal. Conjunctiva and sclera are non-icteric and not injected. Cornea within normal limits. Periorbital areas with no swelling, redness, or edema. ENT: Nares patent. No nasal discharge, no septal abnormalities noted. Tympanic membranes are normal and external auditory canals are clear. Oropharynx with no redness, swelling, or masses, exudates, or evidence of obstruction, uvula midline. Mucous membranes moist. Neck: Trachea midline, no thyromegaly or masses palpated, and no cervical lymphadenopathy. Supple, full range of motion without nuchal rigidity, or vertebral point tenderness. No Meningismus. Chest/axilla: Normal chest wall appearance and motion. Nontender with no deformity. No lesions are appreciated. Cardiovascular: Regular rate and rhythm with a normal S1 and S2. No gallops, murmurs, or rubs. Normal PMI, no JVD. No pulse deficits. Respiratory: Lungs have equal breath sounds bilaterally, clear to auscultation and percussion. No rales, rhonchi or wheezes noted. No increased work of breathing, no retractions or nasal flaring. Abdomen/GI: Soft, non-tender, with normal bowel sounds. No distension or tympany. No guarding or rebound. No evidence of tenderness throughout. Back: No spinal tenderness. No costovertebral tenderness. Full range of motion. Skin: Warm, dry with normal turgor. Normal color with no rashes, no lesions, and no evidence of cellulitis. Neuro: Awake and alert, GCS 15, oriented to person, place, time, and situation. Cranial nerves II-XII grossly intact. Motor strength 5/5 in all extremities. Sensory grossly intact. Cerebellar exam normal. Normal gait. Psych: Awake, alert, with orientation to person, place and time. Behavior, mood, and affect are within normal limits. 19:41 Musculoskeletal/extremity: ROM: limited active range of motion due to pain, limited passive range of motion due to pain, Circulation is intact in all extremities. Pulses: Sensation intact. Compartment Syndrome exam of affected extremity: is normal. Weight bearing: can bear weight with assistance only, uses crutches, DVT Exam: negative Homans' sign noted on exam, no appreciated bluish discoloration, no erythema, no increased warmth, pain, swelling, tenderness. Vital Signs: 19:19 BP 133 / 98; Pulse 112; Resp 16 S; Temp 97.7(TE); Pulse Ox 98% on R/A; Weight 77.11 kg ca1 (R); Height 5 ft. 10 in. (177.80 cm) (R); Pain 6/10; 21:00 BP 125 / 70; Pulse 99; Resp 16; Pulse Ox 99% on R/A; rr5 19:19 Body Mass Index 24.39 (77.11 kg, 177.80 cm) ca1 MDM: 19:26 Patient medically screened. [facility] 19:44 Data reviewed: vital signs, nurses notes, radiologic studies, plain films. Data carito interpreted: personal care service provider: not applicable for this patient encounter. Pulse oximetry: on room air is 98 %. Test interpretation: by ED physician or midlevel provider: plain radiologic studies. Counseling: I had a detailed discussion with the patient and/or guardian regarding: the historical points, exam findings, and any diagnostic results supporting the discharge/admit diagnosis, radiology results. 20:29 Differential diagnosis: fracture, sprain, arthritis, cellulitis. ED course: carito leung placed in walking boot, will follow dr mcdonnell. 02/21 19:40 Order name: Foot Left 3 View XRAY [facility] 02/21 19:40 Order name: Ankle Left 3 View XRAY [facility] 02/21 19:40 Order name: Ice pack; Complete Time: 19:46 [facility] 02/21 20:29 Order name: Walking boot; Complete Time: 21:34 [facility] Administered Medications: 20:30 Drug: [place] 10 mg-325 mg 1 tabs {Note: rass 0.} Route: PO; rr5 21:00 Follow up: Response: No adverse reaction; RASS: Alert and Calm (0) rr5 Disposition: 02/22/20 20:32 Discharged to Home. Impression: Nondisplaced fracture of fifth metatarsal bone, left foot, Displaced avulsion fracture (chip fracture) of left talus. - Condition is Stable. - Discharge Instructions: Metatarsal Fracture, Avulsion Fracture of the Foot. - Prescriptions for Tylenol- Codeine #3 300-30 mg Oral Tablet - take 2 tablets by ORAL route every 6 hours As needed; 20 tablet. Motrin IB 200 mg Oral Tablet - take 2 tablet by ORAL route every 6 hours As needed as needed with food; 30 tablet. - Medication Reconciliation Form, Thank You Letter, Antibiotic Education, Prescription Opioid Use form. - Follow up: Private Physician; When: 2 - 3 days; Reason: Recheck today's complaints, Continuance of care, Re-evaluation by your physician. Follow up: Jones Mcdonnell MD; When: 2 - 3 days; Reason: Recheck today's complaints, Continuance of care, Re-evaluation by your physician. - Problem is new. - Symptoms have improved. Signatures: Dispatcher [employer] EDIN Edmar Reyes MD MD cha Roque, Raymond, RN RN rr5 Jacquelin Cerna RN RN ca1 Corrections: (The following items were deleted from the chart) 21:01 20:32 02/22/2020 20:32 Discharged to Home. Impression: Nondisplaced fracture of fifth rr5 metatarsal bone, left foot; Displaced avulsion fracture (chip fracture) of left talus. Condition is Stable. Forms are Medication Reconciliation Form, Thank You Letter, Antibiotic Education, Prescription Opioid Use. Follow up: Private Physician; When: 2 - 3 days; Reason: Recheck today's complaints, Continuance of care, Re-evaluation by your physician. Follow up: Jones Mcdonnell; When: 2 - 3 days; Reason: Recheck today's complaints, Continuance of care, Re-evaluation by your physician. Problem is new. Symptoms have improved. carito
[2020-02-22] MEDS ORDERED: HYDROCODONE/APAP 10/325 TAB ONE (20:40)
[2020-02-22 21:27] VITALS: BP 133/98; TEMP 97.7; O2SAT 98
--- NOTE | 2020-02-24 16:23 | RAD REPORT ---
EXAM DESCRIPTION: RAD - Ankle Left 3 View - 02/22/2020 8:06 pm CLINICAL HISTORY: Pain;Swelling Trauma, pain, swelling COMPARISON: None FINDINGS: Left ankle and left foot- multiple projections are submitted Transverse fracture is seen at the base of the fifth metatarsal. Mild adjacent soft tissue swelling. Large posterior and plantar calcaneal spurs seen. Tiny avulsion also likely present involving the lat eral process of the talus.
== END 2020-02-22 21:01 | disposition home or self-care (01) ==
LOC: ER 19:06
DX: S92.355A Nondisplaced fracture of fifth metatarsal bone, left foot, initial encounter for closed fracture (principal); S92.152A Displaced avulsion fracture (chip fracture) of left talus, initial encounter for closed fracture; W01.0XXA Fall on same level from slipping, tripping and stumbling without subsequent striking against object, initial encounter; Y93.9 Activity, unspecified; Y92.9 Unspecified place or not applicable; Z85.3 Personal history of malignant neoplasm of breast; Z85.841 Personal history of malignant neoplasm of brain; Z88.0 Allergy status to penicillin; Z88.1 Allergy status to other antibiotic agents; Z88.8 Allergy status to other drugs, medicaments and biological substances
CPT/HCPCS: 99284